=== PATIENT | male | born 1940 | race Caucasian/White ===

== ENCOUNTER → 2017-12-06 | Outpatient (CLI) | payer MEDICARE ==
[~2017-12-06] MED LIST: ASPI-1182 PO; CALC-1105 PO; CARV3.1262 PO; DOXA8TAB2 PO; LOSA1TAB37 PO; MULT-40 PO; OMEP20CA10 PO; SIMV10TA6 PO
== END | disposition home or self-care (01) ==
LOC: SHCH 09:41
PROVIDERS: ATTEND Internal Medicine Cardiovascular Disease
DX: I65.23 Occlusion and stenosis of bilateral carotid arteries (principal)
CPT/HCPCS: 93880

== ENCOUNTER → 2018-05-20 | Outpatient (CLI) | payer MEDICARE | END | disposition home or self-care (01) | LOC: SHCH 13:24 | PROVIDERS: ATTEND Internal Medicine Cardiovascular Disease | DX: I10 Essential (primary) hypertension (principal) | CPT/HCPCS: 93306 ==

== ENCOUNTER → 2018-05-23 | Outpatient (CLI) | payer MEDICARE ==
[~2018-05-23] MED LIST changes: +REGADENOSON 0.4 MG/5 ML PF SYG IVP SCH
== END | disposition home or self-care (01) ==
LOC: SHCH 08:03
PROVIDERS: ATTEND Internal Medicine Cardiovascular Disease
DX: I10 Essential (primary) hypertension (principal); R06.02 Shortness of breath; E78.5 Hyperlipidemia, unspecified; R06.00 Dyspnea, unspecified
CPT/HCPCS: 78452; 93017; 96374; A9500 ×2; J2785

== ENCOUNTER → 2018-06-17 | Outpatient (CLI) | payer MEDICARE ==
[~2018-06-17] MED LIST changes: -REGADENOSON 0.4 MG/5 ML PF SYG IVP SCH
== END | disposition home or self-care (01) ==
LOC: RAH 10:49
PROVIDERS: ATTEND Internal Medicine Cardiovascular Disease
DX: M48.061 Spinal stenosis, lumbar region without neurogenic claudication (principal); M54.16 Radiculopathy, lumbar region; M17.0 Bilateral primary osteoarthritis of knee; M19.012 Primary osteoarthritis, left shoulder; M19.011 Primary osteoarthritis, right shoulder; M19.042 Primary osteoarthritis, left hand; M19.041 Primary osteoarthritis, right hand
CPT/HCPCS: 72148

== ENCOUNTER 2018-08-26 12:30 | Inpatient (IN) | payer MEDICARE ==
[2018-08-22 11:44] LABS: BASOPHILS % (AUTO) 0.8 % (0.0-5.0); EOSINOPHILS % (AUTO) 3.5 % (0.0-8.0); HEMATOCRIT 42.2 % (42-54); LYMPHOCYTES % (AUTO) 24.8 % (21.0-51.0); MEAN CORPUSCULAR HEMOGLOBIN 30.2 pg (27.0-33.0); MEAN CORPUSCULAR HGB CONC 32.9 g/dL (32.0-36.0); MEAN CORPUSCULAR VOLUME 91.8 fL (79-99); MONOCYTES % (AUTO) 8.6 % (3.0-13.0); NEUTROPHILS % (AUTO) 62.3 % (40.0-77.0); PLATELET COUNT (AUTO) 203 K/uL (130-400); RED BLOOD CELL COUNT(AUTO) 4.59 MIL/uL (4.50-6.20); RED CELL DISTRIBUTION WIDTH 13.7 % (11.0-15.5); WHITE BLOOD COUNT (AUTO) 5.7 K/uL (4.8-10.8)
[2018-08-22 11:55] VITALS: BP 174/76
[2018-08-22 11:56] LABS: CREATININE 1.2 mg/dL (0.5-1.5); POTASSIUM 4.5 mmol/L (3.5-5.1)
[~2018-08-26] VITALS: Ht 168.9 cm; Wt 129.6 kg
[~2018-08-26 12:30] MED LIST changes: +AREDS PO; -CALC-1105 PO; -LOSA1TAB37 PO; +LOSA1TAB54 PO; -OMEP20CA10 PO; +OMEP40CA37 PO
[2018-08-28] VITALS (23 sets, daily range): BP systolic 115–179; BP diastolic 58–87
[2018-08-28] MEDS: CEFAZOLIN SODIUM 1 GM VIAL IVP SCH ×2 (05:00→07:30)
[2018-08-28] MEDS ORDERED: LACTATED RINGERS 1000ML 1,000 ML IV ONE (06:45)
[2018-08-28] MEDS ORDERED: DURAMORPH PF1 MG/ML 10ML AMP IV ONE (06:45)
[2018-08-28] MEDS ORDERED: THROMBIN-JMI 20000 UNIT KIT TP ONE (06:46)
[2018-08-28] MEDS ORDERED: BACITRACIN 50,000 UNIT VIAL ONE (06:46)
[2018-08-28] MEDS ORDERED: DEXAMETHASONE SOD PHOSPHATE 10MG/ML 1ML VIAL ONE ×2 (06:51→06:56)
[2018-08-28] MEDS ORDERED: GLYCOPYRROLATE 1 MG/5 ML SYRINGE ONE (06:51)
[2018-08-28] MEDS ORDERED: LIDOCAINE PF 2% 5ML ABBOJECT ONE (06:51)
[2018-08-28] MEDS ORDERED: ROCURONIUM 10MG/1ML SYR 10 MG/ML ML ONE (06:52)
[2018-08-28] MEDS ORDERED: ONDANSETRON HCL 4 MG/2 ML VIAL ONE (06:52)
[2018-08-28] MEDS ORDERED: MIDAZOLAM HCL 1 MG/ML 2ML VIAL ONE (06:52)
[2018-08-28] MEDS ORDERED: NEOSTIGMINE 5MG/5ML SYR IV ONE (06:52)
[2018-08-28] MEDS ORDERED: PROPOFOL 10 MG/ML 20ML VIAL IV ONE ×2 (06:52→07:15)
[2018-08-28] MEDS ORDERED: FENTANYL CITRATE PF 50 MCG/1 ML 2ML VIAL ONE ×2 (06:53→08:36)
[2018-08-28] MEDS ORDERED: EPHEDRINE SULFATE 50 MG/ML AMPULE ONE (07:31)
[2018-08-28] MEDS ORDERED: BUPIVACAINE/EPI/PF 0.25% 50 ML VIAL ONE (07:53)
[2018-08-28] MEDS ORDERED: SUCCINYLCHOLINE CHLORIDE 20 MG/ML 10 ML VIAL ONE (07:59)
[2018-08-28] MEDS ORDERED: BUPIVACAINE/EPI/PF 0.25% 50 ML VIAL IV SCH ×2 (08:00)
[2018-08-28] MEDS ORDERED: FAMOTIDINE/PF 20 MG/2 ML VIAL IV ONE (08:05)
[2018-08-28] MEDS ORDERED: PHENYLEPHRINE HCL 10 MG/ML 1ML VIAL IV ONE (08:09)
[2018-08-28] MEDS ORDERED: ATROPINE SULFATE 0.1 MG/ML 10 ML SYG IVP ONE (09:58)
[2018-08-28] MEDS ORDERED: MORPHINE SULFATE 2 MG/ML 1ML SYG IVP PRN (10:15)
[2018-08-28] MEDS ORDERED: PROMETHAZINE HCL 25 MG/ML 1ML AMPULE IM PRN (10:15)
[2018-08-28] MEDS ORDERED: SODIUM CHLORIDE 0.9% 10 ML VIAL IVP PRN (10:15)
[2018-08-28] MEDS ORDERED: CEFAZOLIN SODIUM 1 GM VIAL IVP SCH (10:15)
[2018-08-28] MEDS: PANTOPRAZOLE SODIUM 40 MG TABLET.DR PO SCH (10:45)
[2018-08-28] MEDS ORDERED: HYDRALAZINE HCL 20 MG/ML VIAL ONE (11:02)
--- NOTE | 2018-08-28 11:35 | NUR ---
POST SURGERY PATIENT RECEIVED FROM PACU VIA HOSPITAL BED IN STABLE CONDITION. SPOUSE IS IN ROOM. BOTH WERE ORIENTED TO ROOM AND USE OF CALL LIGHT. DRESSING TO LOWER BACK IS DRY AND INTACT WITH TOBIAS DRAIN IN PLACE. DRAIN IS NOT COMPRESSED AT THIS TIME. TEDS/ SCD'S ARE IN PLACE. BED IS IN LOWEST POSITION AND LOCKED WITH ALL PERSONAL BELONGINGS WITHIN REACH. IV IS PATENT INFUSING IV FLUIDS WITH NO REDNESS OR SWELLING NOTED TO SITE.
[2018-08-28] MEDS: LACTATED RINGERS 1000ML 1,000 ML IV SCH ×2 (11:44→23:34)
[2018-08-28] MEDS: DEXAMETHASONE SOD PHOSPHATE 4 MG/ML 1ML VIAL IVP SCH ×3 (11:44→21:31)
[2018-08-28] MEDS ORDERED: SIMVASTATIN 10 MG TABLET PO SCH (21:00)
[2018-08-28] MEDS ORDERED: DOXAZOSIN MESYLATE 2 MG TABLET PO SCH (21:00)
[2018-08-28] MEDS: AREDS PO SCH (21:00)
[2018-08-28] MEDS: CARVEDILOL 3.125 MG TABLET PO SCH (21:31)
[2018-08-28] MEDS: HYDROCODONE/ACETAMINOPHEN 5/325 MG TAB PO PRN (23:01)
[2018-08-29] VITALS: BP 135/69
[2018-08-29 04:00] VITALS: BP 138/69
[2018-08-29] MEDS: DEXAMETHASONE SOD PHOSPHATE 4 MG/ML 1ML VIAL IVP SCH (04:23)
[2018-08-29] MEDS: HYDROCODONE/ACETAMINOPHEN 5/325 MG TAB PO PRN ×2 (04:23→09:08)
[2018-08-29] MEDS: PANTOPRAZOLE SODIUM 40 MG TABLET.DR PO SCH (06:00)
--- NOTE | 2018-08-29 07:20 | NUR ---
DR. CHA EUBANKS IN TO SEE PATIENT. ORDERS RECEIVED FOR DISCHARGE.
[2018-08-29 08:10] VITALS: BP 152/74
[2018-08-29 08:16] VITALS: BP 152/74
[2018-08-29] MEDS: CARVEDILOL 3.125 MG TABLET PO SCH (08:16)
[2018-08-29] MEDS: AREDS PO SCH (08:16)
--- NOTE | 2018-08-29 08:35 | NUR ---
DRESSING CHANGE DRESSING TO LOWER BACK CHANGED PER MD ORDER. TOBIAS DRAIN WAS REMOVED WITH TIP INTACT. PATIENT TOLERATED PROCEDURE WELL.
[2018-08-29] MEDS ORDERED: LOSARTAN/HYDROCHLOROTHIAZIDE 50-12.5MG TABLET PO SCH (09:00)
[2018-08-29] MEDS ORDERED: MULTIVITAMIN TABLET PO SCH (09:00)
[2018-08-29] MEDS ORDERED: ASPIRIN 81 MG EC TAB PO SCH (09:00)
--- NOTE | 2018-08-29 09:00 | NUR ---
INSTRUCTIONS DISCHARGE INSTRUCTIONS GIVEN TO PATIENT USING TEACH BACK. F/U APPOINTMENT MADE. NEW PRESCRIPTION PLACED IN PACKET ALONG WITH ALL PRINTED INSTRUCTIONS. IV REMOVED WITH TIP INTACT. DIRECT PRESSURE APPLIED UNTIL BLEEDING CONTROLLED THEN SITE COVERED WITH GAUZE AND SECURED WITH TAPE.
--- NOTE | 2018-08-29 09:45 | NUR ---
TRANSPORT PATIENT TRANSPORTED TO PRIVATE VEHICLE VIA WHEELCHAIR BY DANNI MELENDEZ. ALL PERSONAL BELONGINGS WITH SPOUSE. NO C/O PAIN AT THIS TIME. NO QUESTIONS OR CONCERNS VOICED.
--- NOTE | 2018-08-29 12:44 | NUR ---
CM PATIENT DC'ED PRIOR TO IA BY CM, NO CONCERNS OR NEEDS VOICED TO RN'S BY PT. Addendum: 08/29/18 at 1248 by AVINASH WALTERS RN CM Amended: Links added.
== END 2018-08-29 09:45 | disposition home or self-care (01) | DRG 516 ==
LOC: DAHIP 08-28 05:55 → 4BH 08-28 11:29 → EDSTATUS 08-28 12:30
PROVIDERS: ADMIT Neurological Surgery; ATTEND Neurological Surgery
PROC: BR1B1ZZ Fluoroscopy of Lumbosacral Joint using Low Osmolar Contrast (ICD-10-PCS; 2018-08-28)
PROC: 01NB0ZZ Release Lumbar Nerve, Open Approach (ICD-10-PCS; principal; 2018-08-28 07:27)
PROC: 01NR0ZZ Release Sacral Nerve, Open Approach (ICD-10-PCS; 2018-08-28 07:27)
PROC: BR131ZZ Fluoroscopy of Lumbar Disc(s) using Low Osmolar Contrast (ICD-10-PCS; 2018-08-28 07:27)
DX: M48.061 Spinal stenosis, lumbar region without neurogenic claudication (principal); Z68.42 Body mass index [BMI] 45.0-49.9, adult; M48.07 Spinal stenosis, lumbosacral region; E66.01 Morbid (severe) obesity due to excess calories; G56.03 Carpal tunnel syndrome, bilateral upper limbs; I25.10 Atherosclerotic heart disease of native coronary artery without angina pectoris; K21.9 Gastro-esophageal reflux disease without esophagitis; I10 Essential (primary) hypertension; M19.90 Unspecified osteoarthritis, unspecified site; G47.33 Obstructive sleep apnea (adult) (pediatric); F41.9 Anxiety disorder, unspecified; Z95.1 Presence of aortocoronary bypass graft; Z98.84 Bariatric surgery status
CPT/HCPCS: 36415; 72020; 80048; 85025; 93005; A4218; A4344; G0378; J0330; J0360; J0461; J0690; J1100; J2001; J2250; J2274; J2370; J2405; J2704; J2710; J3010; J3490; J7030; J7120

== ENCOUNTER 2019-02-24 07:20 | Day surgery (SDC) | payer MEDICARE ==
[2019-02-21 08:42] VITALS: BP 178/77
[2019-02-21 08:47] LABS: BASOPHILS % (AUTO) 0.7 % (0.0-5.0); EOSINOPHILS % (AUTO) 4.9 % (0.0-8.0); HEMATOCRIT 41.1 % (42-54); LYMPHOCYTES % (AUTO) 30.2 % (21.0-51.0); MEAN CORPUSCULAR HEMOGLOBIN 30.6 pg (27.0-33.0); MEAN CORPUSCULAR HGB CONC 33.3 g/dL (32.0-36.0); MEAN CORPUSCULAR VOLUME 91.8 fL (79-99); MONOCYTES % (AUTO) 11.2 % (3.0-13.0); PLATELET COUNT (AUTO) 197 K/uL (130-400); RED BLOOD CELL COUNT(AUTO) 4.48 MIL/uL (4.50-6.20)
[2019-02-21 08:50] LABS: APPEARANCE,URINE Clear (CLEAR); BILIRUBIN,URINE Negative (NEGATIVE); COLOR,URINE Yellow (YELLOW); GLUCOSE, URINE (UA) Negative (NEGATIVE); KETONES,URINE Negative (NEGATIVE); LEUKOCYTE ESTERASE ,URINE Negative (NEGATIVE); NITRATE,URINE Negative (NEGATIVE); OCCULT BLOOD,URINE Negative (NEGATIVE); PH,URINE 5.5 (5.0-8.0); PROTEIN,URINE Negative (NEGATIVE)
[2019-02-21 09:01] LABS: CREATININE 1.3 mg/dL (0.5-1.5)
[2019-02-21 09:04] LABS: INR 0.99 (0.85-1.15); PARTIAL THROMBOPLASTIN TIME 28.4 SEC (26.3-35.5); PROTHROMBIN TIME 10.4 SEC (9.6-11.6)
--- NOTE | 2019-02-21 16:28 | NUR ---
LABS INFORMED JUSTIN GALLAGHER OF ABNORMAL BUN/CREA. NO ORDERS RECEIVED. PROCEED WITH PLANNED PROCEDURE.
[~2019-02-24] VITALS: Ht 167.6 cm; Wt 130.0 kg
[2019-02-24] VITALS (10 sets, daily range): BP systolic 113–172; BP diastolic 54–82
[~2019-02-24 07:20] MED LIST changes: -ASPI-1182 PO; -MULT-40 PO; +[UNRECOGNIZED DRUG - CODE] PO; +[UNRECOGNIZED DRUG - OTHER] PO
[2019-02-24] MEDS ORDERED: ALPRAZOLAM 0.5 MG TABLET PO SCH (08:30)
[2019-02-24] MEDS ORDERED: SODIUM CHLORIDE 0.9% 1000ML 1,000 ML IV ONE (09:06)
[2019-02-24] MEDS ORDERED: NITROGLYCERIN 5 MG/ML 10 ML VIAL IV ONE (09:29)
[2019-02-24] MEDS ORDERED: IOHEXOL-350 50ML VIAL IV ONE (09:29)
[2019-02-24] MEDS ORDERED: HEPARIN SODIUM 1000UNIT/ML 10ML VIAL ONE (09:29)
[2019-02-24] MEDS ORDERED: SODIUM BICARB 50MEQ 50ML VIAL ONE (09:29)
[2019-02-24] MEDS ORDERED: IOHEXOL 350 MG/ML 100ML INFUS..BTL IV ONE (09:29)
[2019-02-24] MEDS ORDERED: LIDOCAINE HCL 2% 20ML ONE (09:30)
[2019-02-24] MEDS ORDERED: MEPERIDINE-PF 25 MG/ML SYG ONE ×2 (09:53→10:35)
[2019-02-24] MEDS ORDERED: MIDAZOLAM HCL 1 MG/ML 2ML VIAL ONE ×2 (09:54→10:35)
[2019-02-24] MEDS ORDERED: NITROGLYCERIN 4.1 GM SPRAY TL ONE (10:09)
[2019-02-24] MEDS ORDERED: SODIUM CHLORIDE 0.9% 1000ML 1,000 ML IV SCH (10:45)
== END 2019-02-24 15:11 | disposition home or self-care (01) ==
LOC: DAH 07:20
PROVIDERS: ATTEND Internal Medicine Cardiovascular Disease
DX: I25.118 Atherosclerotic heart disease of native coronary artery with other forms of angina pectoris (principal); R94.39 Abnormal result of other cardiovascular function study; I10 Essential (primary) hypertension; E78.00 Pure hypercholesterolemia, unspecified; K21.9 Gastro-esophageal reflux disease without esophagitis; N40.0 Benign prostatic hyperplasia without lower urinary tract symptoms; F15.90 Other stimulant use, unspecified, uncomplicated; M17.10 Unilateral primary osteoarthritis, unspecified knee; M19.012 Primary osteoarthritis, left shoulder; M19.011 Primary osteoarthritis, right shoulder; M19.042 Primary osteoarthritis, left hand; M19.041 Primary osteoarthritis, right hand; Z90.49 Acquired absence of other specified parts of digestive tract; Z95.1 Presence of aortocoronary bypass graft; Z98.890 Other specified postprocedural states; Z79.01 Long term (current) use of anticoagulants; Z79.82 Long term (current) use of aspirin; Z79.899 Other long term (current) drug therapy; Z87.891 Personal history of nicotine dependence; Z82.49 Family history of ischemic heart disease and other diseases of the circulatory system; Z82.5 Family history of asthma and other chronic lower respiratory diseases
CPT/HCPCS: 36415; 71045; 80048; 81003; 85025; 85610; 85730; 93005; 93459; A4606; C1760; C1894; J1644; J2175 ×2; J2250 ×2; J3490 ×3; J7030; Q9965; Q9967 ×2; 99156; 99157

== ENCOUNTER → 2019-10-06 | Outpatient (CLI) | payer MEDICARE ==
[~2019-10-06] MED LIST changes: +ASPI-1521 PO; +OMEP40CA13 PO; -OMEP40CA37 PO; -SIMV10TA6 PO; +SIMV10TA97 PO; -[UNRECOGNIZED DRUG - CODE] PO
== END | disposition home or self-care (01) ==
LOC: RAH 07:57
PROVIDERS: ATTEND Nurse Practitioner Adult Health
DX: M48.061 Spinal stenosis, lumbar region without neurogenic claudication (principal)
CPT/HCPCS: 72148

== ENCOUNTER → 2019-10-10 | Outpatient (CLI) | payer MEDICARE | END | disposition home or self-care (01) | LOC: RAH 14:17 | PROVIDERS: ATTEND Nurse Practitioner Adult Health | DX: N28.1 Cyst of kidney, acquired (principal); N23 Unspecified renal colic | CPT/HCPCS: 76770 ==

== ENCOUNTER → 2020-01-14 | Outpatient (CLI) | payer MEDICARE | END | disposition home or self-care (01) | LOC: SHCH 11:03 | PROVIDERS: ATTEND Internal Medicine Cardiovascular Disease | DX: I65.23 Occlusion and stenosis of bilateral carotid arteries (principal) | CPT/HCPCS: 93880 ==

== ENCOUNTER 2022-07-24 05:55 | Day surgery (SDC) | payer MEDICARE ==
[2022-07-20 14:50] LABS: BASOPHILS % (AUTO) 0.5 % (0.0-5.0); EOSINOPHILS % (AUTO) 3.5 % (0.0-8.0); LYMPHOCYTES % (AUTO) 28.6 % (21.0-51.0); MEAN CORPUSCULAR VOLUME 96.9 fL (79-99); MONOCYTES % (AUTO) 9.7 % (3.0-13.0); NEUTROPHILS % (AUTO) 57.5 % (40.0-77.0); PLATELET COUNT (AUTO) 181 K/uL (130-400); RED BLOOD CELL COUNT(AUTO) 4.13 MIL/uL (4.50-6.20); RED CELL DISTRIBUTION WIDTH 13.4 % (11.0-15.5); WHITE BLOOD COUNT (AUTO) 6.5 K/uL (4.8-10.8)
[2022-07-20 14:53] LABS: APPEARANCE,URINE CLEAR (CLEAR); BILIRUBIN,URINE NEGATIVE (NEGATIVE); COLOR,URINE COLORLESS (YELLOW); GLUCOSE, URINE (UA) NEGATIVE (NEGATIVE); KETONES,URINE NEGATIVE (NEGATIVE); LEUKOCYTE ESTERASE ,URINE NEGATIVE Leu/uL (NEGATIVE); NITRATE,URINE NEGATIVE (NEGATIVE); OCCULT BLOOD,URINE NEGATIVE (NEGATIVE); PROTEIN,URINE NEGATIVE (NEGATIVE); UROBILINOGEN,URINE 0.2 mg/dL (0.2-1.0)
[2022-07-20 14:59] LABS: CREATININE 1.1 mg/dL (0.5-1.5); POTASSIUM 4.7 mmol/L (3.5-5.1)
[2022-07-20 15:02] LABS: PROTHROMBIN TIME 10.9 SEC (9.6-11.6)
[2022-07-20 15:04] LABS: PARTIAL THROMBOPLASTIN TIME 27.6 SEC (26.3-35.5)
[2022-07-20 15:29] LABS: B-TYPE NATRIURETIC PEPTIDE 106 pg/mL (0-100)
[2022-07-20 16:01] VITALS: BP 187/89
[~2022-07-24] VITALS: Ht 167.6 cm; Wt 128.8 kg
[2022-07-24] VITALS (13 sets, daily range): BP systolic 126–169; BP diastolic 59–81
[~2022-07-24 05:55] MED LIST changes: +ACET-2743 PO; -AREDS PO; +LEVO50TA11 PO; +MULT-1367 PO; +OMEP20CA12 PO; -OMEP40CA13 PO; +VIT1CAPS5 PO; -[UNRECOGNIZED DRUG - OTHER] PO
[2022-07-24] MEDS ORDERED: 0.9% NACL 500ML IV.SOLN 500 ML IV SCH (06:00)
[2022-07-24] MEDS ORDERED: 0.9%NACL 1000ML 1,000 ML IV ONE (06:17)
[2022-07-24] MEDS ORDERED: HEPARIN 10,000 UNIT/10ML (1,000 UNIT/ML) VIAL ONE (07:15)
[2022-07-24] MEDS ORDERED: IOHEXOL 350 MG/ML 100ML INFUS..BTL IV ONE (07:15)
[2022-07-24] MEDS ORDERED: IOHEXOL-350 50ML VIAL IV ONE (07:15)
[2022-07-24] MEDS ORDERED: NITROGLYCERIN 50MG VIAL ONE (07:15)
[2022-07-24] MEDS ORDERED: LIDOCAINE HCL 400MG/20ML VIAL ONE (07:16)
[2022-07-24] MEDS ORDERED: MIDAZOLAM HCL 1 MG/ML 2ML VIAL ONE ×2 (07:16→07:32)
[2022-07-24] MEDS ORDERED: MEPERIDINE-PF 25 MG/ML SYG ONE ×2 (07:16→07:32)
[2022-07-24] MEDS ORDERED: SODIUM BICARB 50MEQ 50ML VIAL 50 ML ONE (07:21)
[2022-07-24] MEDS ORDERED: ATROPINE 1MG SYG IVP ONE ×2 (07:26→10:55)
[2022-07-24] MEDS ORDERED: 0.9%NACL 1000ML 1,000 ML IV SCH (08:30)
[2022-07-24] MEDS ORDERED: ACETAMINOPHEN 500 MG TABLET ONE ×2 (11:37→11:41)
[2022-07-24] MEDS ORDERED: ATROPINE 1MG SYG IVP SCH (12:00)
== END 2022-07-24 14:05 | disposition home or self-care (01) ==
LOC: DAH 05:55
PROVIDERS: ATTEND Internal Medicine Cardiovascular Disease
DX: I25.119 Atherosclerotic heart disease of native coronary artery with unspecified angina pectoris (principal); I25.82 Chronic total occlusion of coronary artery; I11.0 Hypertensive heart disease with heart failure; I50.32 Chronic diastolic (congestive) heart failure; M19.90 Unspecified osteoarthritis, unspecified site; I45.10 Unspecified right bundle-branch block; E66.9 Obesity, unspecified; Z79.01 Long term (current) use of anticoagulants; Z79.899 Other long term (current) drug therapy; Z79.82 Long term (current) use of aspirin; Z79.890 Hormone replacement therapy; Z98.890 Other specified postprocedural states; Z98.84 Bariatric surgery status; Z90.49 Acquired absence of other specified parts of digestive tract; Z95.1 Presence of aortocoronary bypass graft
CPT/HCPCS: 80048; 83880; 85025; 85610; 85730; 81003; 36415; 71045; 93005; 93459; C1894; C1760; J3490 ×3; J7030; J0461 ×2; J2250 ×2; J2175 ×2; J1644; Q9967 ×2; A4215; A4222; A4221; A4663; A4216; A4606; Q9965; A4223 ×3; 96374; 96375; 99156; 99157

== ENCOUNTER → 2022-09-13 | Outpatient (CLI) | payer MEDICARE ==
[~2022-09-13] MED LIST changes: +ALBUTEROL 0.083% 2.5 MG/3 ML INH IH ONE; -CARV3.1262 PO
== END | disposition home or self-care (01) ==
LOC: RESP 10:25
PROVIDERS: ATTEND Internal Medicine Cardiovascular Disease
DX: R06.00 Dyspnea, unspecified (principal)
CPT/HCPCS: 94060

== ENCOUNTER → 2023-12-20 | Outpatient (CLI) | payer MEDICARE ==
[~2023-12-20] MED LIST changes: -ALBUTEROL 0.083% 2.5 MG/3 ML INH IH ONE
== END ==
LOC: SHCH 08:43
PROVIDERS: ATTEND Internal Medicine Cardiovascular Disease
DX: I08.8 Other rheumatic multiple valve diseases (principal); I25.10 Atherosclerotic heart disease of native coronary artery without angina pectoris; I10 Essential (primary) hypertension; E78.5 Hyperlipidemia, unspecified
CPT/HCPCS: 93306

== ENCOUNTER → 2024-04-09 | Outpatient (CLI) | payer MEDICARE ==
[2024-04-09 12:17] LABS: CREATININE 1.4 mg/dL (0.5-1.3); POTASSIUM 4.7 mmol/L (3.5-5.1)
== END | disposition home or self-care (01) ==
LOC: LAB 10:07
PROVIDERS: ATTEND Internal Medicine Cardiovascular Disease
DX: R06.02 Shortness of breath (principal)
CPT/HCPCS: 36415; 80048